=== PATIENT | male | born 1990 | race Caucasian/White ===

== ENCOUNTER 2016-10-10 00:05 | Emergency (ER) | payer OTHER ==
[~2016-10-10] VITALS: Ht 165.1 cm; Wt 76.0 kg
[2016-10-10 00:09] VITALS: Ht 165.1 cm; Wt 76.0 kg
--- NOTE | 2016-10-10 01:36 | ERD ---
ER Documentation Chief Complaint Date/Time DATE: 10/10/16 TIME: 01:33 Chief Complaint swollen left anglican of head, tender to touch and c/o anxiety HPI 26-year-old male presents here in emergency department for complaints of headache, feels some enlargement vein in the left side of the head area, throbbing pain 6/10 scale, not better with anything, vomited with nausea. Patient denies any head injury. Patient did not take any medications for pain. Patient feels anxious because of this headache. Patient denies any changes in balance or memory. Patient denies any head injuries. ROS All systems reviewed and are negative except as per history of present illness. Medications Home Meds Reported Medications [none] Unknown Strength No Conflict Check 10/10/16 Allergies Allergies: Coded Allergies: No Known Allergy (Unverified , 10/10/16) PMhx/Soc Medical and Surgical Hx: pt denies Medical Hx Hx Psychiatric Problems: Yes (anxiety) Hx Alcohol Use: No Hx Substance Use: No Hx Tobacco Use: No FmHx Family History: No coronary disease, No diabetes, No other Physical Exam Vitals Vital Signs Date Time Temp Pulse Resp B/P Pulse Ox O2 Delivery O2 Flow Rate FiO2 10/10/16 00:09 98.3 79 20 155/82 99 Physical Exam GENERAL: The patient is well developed and appropriate for usual state of health, in no apparent distress. CHEST: Clear to auscultation bilaterally. There are no rales, wheezes or rhonchi. HEART: Regular rate and rhythm. No murmurs, clicks, rubs or gallops. No S3 or S4. ABDOMEN: Soft, nontender and nondistended. Good bowel sounds. No rebound or guarding. No gross peritonitis. No gross organomegaly or masses. No Denton sign or McBurney point tenderness. BACK: No midline or flank tenderness. EXTREMITIES: Equal pulses bilaterally. There is no peripheral clubbing, cyanosis or edema. No focal swelling or erythema. Full range of motion. Grossly neurovascularly intact. NEURO: Alert and oriented. Cranial nerves 2-12 intact. Motor strength in all 4 extremities with 5/5 strength. Sensation grossly intact. Normal speech and gait. Negative Romberg sign, negative pronator drift. No palpable enlarged vein where the patient is pointing, no palpable temporal arteritis. HEMATOLOGIC AND LYMPHATIC: There is no evidence of excessive bruising or lymphedema. No gross cervical, axillary, or inguinal lymphadenopathy. Results 24 hrs PROCEDURE: Noncontrast CT Head. CLINICAL INDICATION: Pain. TECHNIQUE: Noncontrast CT of the head was obtained. The administered radiation dose was CTDI vol = 43 mGy, DLP = 720 mGy-cm. COMPARISON: No pertinent prior examinations were submitted for comparison. FINDINGS: The ventricles and sulci are within normal limits. There is no acute intracranial hemorrhage or extra-axial fluid collection. There is no mass effect. No midline shift is identified. There is no loss of griffith-white differentiation to suggest acute infarction. The orbits are within normal limits. The paranasal sinuses and mastoid air cells are without fluid. No destructive osseous lesion is identified. IMPRESSION: No acute findings. RPTAT: HIKT .Scotty Elder MD, MD Date Time Electronically viewed and signed by .Scotty Elder MD, MD on 10/10/2016 02:33 .T/ CC: HOMERO SIMMONS [employer]TER Procedures/MDM Medical Decision Making: Patient's symptoms nonspecific at this time, most likely tension headache, most likely also stress related. Patient also has anxiety symptoms. Patient is advised to see legal service specialist to follow with primary care doctor for further evaluation of symptoms. There is low suspicion for neurological emergencies at this time since patients neurologic exam is normal. Patient did not have any altered level consciousness, vomiting, changes in balance or memory after incident. Patients CT scan of the head does not show any neurological emergencies at this time. Rx: Fioricet Departure Diagnosis: Primary Impression: Acute headache Headache type: unspecified Intractability: not intractable Qualified Code: R51 - Acute nonintractable headache, unspecified headache type Additional Impression: Anxiety Condition: Stable Patient Instructions: Anxiety Reaction, Headache, Unspecified HOMERO SIMMONS NP Oct 10, 2016 01:36
--- NOTE | 2016-10-10 02:33 | RADRPT ---
PROCEDURE: Noncontrast CT Head. CLINICAL INDICATION: Pain. TECHNIQUE: Noncontrast CT of the head was obtained. The administered radiation dose was CTDI vol = 43 mGy, DLP = 720 mGy-cm. COMPARISON: No pertinent prior examinations were submitted for comparison. FINDINGS: The ventricles and sulci are within normal limits. There is no acute intracranial hemorrhage or ext ra-axial fluid collection. There is no mass effect. No midline shift is identified. There is no loss of griffith-white differentiation to suggest acute infarction. The orbits are within normal limits. The paranasal sinuses and mastoid air cells are without fluid. No destructive osseous lesion is identified. IMPRESSION: No acute findings. RPTAT: HIKT .Scotty Elder MD, MD Date Time Electronically viewed and signed by .Scotty Elder MD, on 10/10/2016 02:33 .T/
[2016-10-10] MEDS ORDERED: FIORICET PO (02:55)
== END 2016-10-10 03:05 | disposition home or self-care (01) ==
LOC: FTE 00:05
DX: R51 Headache (principal); F41.9 Anxiety disorder, unspecified
CPT/HCPCS: 70450; Z7502